=== PATIENT | female | born 2000 | race Caucasian/White ===

== ENCOUNTER 2018-03-21 19:45 | Emergency (ER) | payer OTHER ==
[2018-03-21] MEDS: DIPHENHYDRAMINE 25 MG CAP PO (21:01)
[2018-03-21] MEDS: ONDANSETRON (ODT) 4 MG TAB ODT (21:01)
[2018-03-21] MEDS: FAMOTIDINE 20 MG TAB PO (21:01)
[2018-03-21] MEDS: DEXAMETHASONE 10 MG/ML 1 ML INJ IM (21:02)
== END 2018-03-21 21:48 | disposition home or self-care (01) ==
LOC: FTE 19:45
DX: L50.9 Urticaria, unspecified (principal); T36.4X5A Adverse effect of tetracyclines, initial encounter
CPT/HCPCS: 96372; 99284-25